=== PATIENT | female | born 1975 | race Two or more races ===

== ENCOUNTER 2025-03-22 16:55 | Emergency (ER) | payer SELFPAY ==
[~2025-03-22] VITALS: Ht 157.5 cm; Wt 64.0 kg
[2025-03-22 17:03] VITALS: O2SAT 99
[2025-03-22] MEDS: ACETAMINOPHEN 325MG TABLET PO ONE (20:23)
[2025-03-22] MEDS: IBUPROFEN 600MG TABLET PO ONE (20:23)
[2025-03-22 20:34] VITALS: BP 125/80; PULSE 74; RESP 12; TEMP 36.8; O2SAT 100
== END 2025-03-22 20:40 | disposition home or self-care (01) ==
LOC: ER 16:55
DX: M79.672 Pain in left foot (principal); E03.9 Hypothyroidism, unspecified
CPT/HCPCS: 73620; 93971; 99284